=== PATIENT | female | born 1975 | race Caucasian/White ===

== ENCOUNTER → 2016-11-12 | Outpatient (CLI) | payer BC ==
[2016-08-02 21:07] VITALS: BP 97/65
--- NOTE | 2016-11-12 16:10 | RAD ---
ELBOW RADIOGRAPHS CLINICAL HISTORY: 41-year-old female with left elbow pain. COMPARISON: Left elbow radiographs August 02, 2016. FINDINGS: Frontal and lateral views redemonstrate the total left elbow arthroplasty with humeral and ulnar components congruent and well seated. No evidence of hardware malfunction. Partially imaged i ntra medullary humeral component of shoulder arthroplasty. Osteophytosis and heterotopic bone produc tion about the elbow with no evidence of osseous fracture. Soft tissues unremarkable. IMPRESSION: Status post total left elbow arthroplasty with no evidence of osseous fracture or hardware malfuncti on. Reported By:
== END | disposition home or self-care (01) | DRG 556 ==
LOC: RAD 15:28
PROVIDERS: ATTEND Nurse Practitioner Family
DX: M25.522 Pain in left elbow (principal); Z96.622 Presence of left artificial elbow joint; Z98.890 Other specified postprocedural states
CPT/HCPCS: 73070

== ENCOUNTER → 2017-01-26 | Outpatient (CLI) | payer BC ==
[2016-08-02 21:07] VITALS: BP 97/65
== END ==
LOC: LAB 12:14
PROVIDERS: ATTEND Specialist
DX: M19.022 Primary osteoarthritis, left elbow (principal)
CPT/HCPCS: 36415; 85652; 86140